=== PATIENT | female | born 1995 | race African-American/Black ===

== ENCOUNTER 2017-01-29 08:34 | Emergency (ER) | payer SELFPAY ==
[~2017-01-29] VITALS: Ht 160 cm; Wt 80.0 kg
[~2017-01-29 08:34] MED LIST: AVIANE PO; MEDDOSEPAK PO; METROGEL VAG0.75 % VA; SPRINTEC 2828 DAY PO; ULTRAM50 M1 PO; ZOFRAN ODT4 MG PO
[2017-01-29] MEDS ORDERED: PEPCID20 MG PO (09:15)
[2017-01-29] MEDS ORDERED: BENADRYL 50MG C50 MG PO (09:15)
[2017-01-29] MEDS ORDERED: MEDDOSEPAK PO (09:15)
[2017-01-29 09:38] VITALS: BP 111/55
== END 2017-01-29 09:44 | disposition home or self-care (01) | DRG 607 ==
LOC: ED 08:34
DX: L50.0 Allergic urticaria (principal); L29.9 Pruritus, unspecified; T50.995A Adverse effect of other drugs, medicaments and biological substances, initial encounter; Y92.009 Unspecified place in unspecified non-institutional (private) residence as the place of occurrence of the external cause

== ENCOUNTER 2017-05-12 14:25 | Emergency (ER) | payer SELFPAY ==
[~2017-05-12] VITALS: Ht 160 cm; Wt 90.5 kg
[~2017-05-12 14:25] MED LIST changes: +BENADRYL 50MG C50 MG PO; +PEPCID20 MG PO
[2017-05-12 15:45] LABS: URINE BILIRUBIN - DIPSTICK NEGATIVE (NEGATIVE); URINE BLOOD DIPSTICK NEGATIVE (NEGATIVE); URINE CLARITY CLEAR; URINE COLOR YELLOW; URINE GLUCOSE - DIPSTICK NEGATIVE (NEGATIVE); URINE KETONE NEGATIVE (NEGATIVE); URINE LEUK ESTERASE NEGATIVE (NEGATIVE); URINE NITRITE - DIPSTICK NEGATIVE (Negative); URINE PH 5.5 (4.5-8.0); URINE PROTEIN - DIPSTICK NEGATIVE (NEG-TRACE); URINE SPECIFIC GRAVITY 1.025; URINE UROBILINOGEN - DIPSTICK 0.2 E.U./dL (0.2)
[2017-05-12 16:07] LABS: HEMATOCRIT 35.6 % (37.0-47.0); HEMOGLOBIN 12.2 g/dl (12.0-16.0); IMMATURE GRANULOCYTES 0.3 % (0.0-1.0); MEAN CELL VOLUME 72.8 fL CALC (80.0-100.0); MEAN CORPUSCULAR HGB 24.9 pG CALC (26.0-32.0); MEAN CORPUSCULAR HGB CONC 34.3 g/L CALC (32.0-36.0); NEUT# 5.81 thou/uL (2.00-7.15); RED BLOOD COUNT 4.89 mill/uL (4.20-5.60); RED CELL DISTRI WIDTH 16.3 % (11.5-15.5)
[2017-05-12 16:27] LABS: ALBUMIN 4.1 g/dL (3.2-5.0); ALKALINE PHOSPHATASE 72 u/l (38-126); ANION GAP 13 (6-22 (CALC)); BILIRUBIN, TOTAL 0.2 mg/dL (0.0-1.4); BUN 10 mg/dL (7-17); BUN/CREATININE RATIO 17 (12-20 (CALC)); CALCIUM 9.1 mg/dL (8.4-10.2); CARBON DIOXIDE 26 mmol/l (22-30); CHLORIDE 105 mmol/l (95-108); CREATININE 0.6 mg/dL (0.5-1.0); GFR > 60 ML/MIN (>=60 (CALC)); GFR FOR AFR.AMER. > 60 ML/MIN (>=60 (CALC)); GLUCOSE 87 mg/dL (65-105); LIPASE 74 u/l (23-300); POTASSIUM 3.9 mmol/l (3.5-5.1); SGOT/AST 43 u/l (14-36); SGPT/ALT 35 u/l (9-52); SODIUM 140 mmol/l (137-146); TOTAL PROTEIN 7.1 g/dL (6.3-8.2)
[2017-05-12 17:57] VITALS: BP 118/68
== END 2017-05-12 18:08 | disposition home or self-care (01) | DRG 392 ==
LOC: ED 14:25
PROVIDERS: Family Medicine
DX: R10.32 Left lower quadrant pain (principal)
CPT/HCPCS: Q9967

== ENCOUNTER 2018-10-06 18:14 | Emergency (ER) | payer SELFPAY ==
[~2018-10-06] VITALS: Ht 160 cm; Wt 95.5 kg
[2018-10-06 18:37] VITALS: BP 119/69
== END 2018-10-06 20:22 | disposition left against medical advice (07) | DRG 951 ==
LOC: ED 18:14 → LWOBS 20:22
DX: Z91.19 Patient's noncompliance with other medical treatment and regimen (principal)

== ENCOUNTER 2018-10-18 14:53 | Emergency (ER) | payer OTHER ==
[~2018-10-18] VITALS: Ht 160 cm; Wt 90.0 kg
[2018-10-18] MEDS ORDERED: ZITHROMAX250 MG PO (16:06)
[2018-10-18] MEDS ORDERED: PROVENTIL108 MCG/AC IN (16:06)
[2018-10-18 16:21] VITALS: BP 133/81
== END 2018-10-18 16:21 | disposition home or self-care (01) | DRG 203 ==
LOC: ED 14:53
DX: J40 Bronchitis, not specified as acute or chronic (principal)

== ENCOUNTER 2019-01-05 21:31 | Emergency (ER) | payer OTHER ==
[~2019-01-05] VITALS: Ht 160 cm; Wt 92.7 kg
[~2019-01-05 21:31] MED LIST changes: +PROVENTIL108 MCG/AC IN; +ZITHROMAX250 MG PO
[2019-01-05] MEDS ORDERED: PROMETHAZINE12.5 MG PO (21:42)
[2019-01-05 22:38] LABS: HEMATOCRIT 33.3 % (37.0-47.0); HEMOGLOBIN 11.3 g/dl (12.0-16.0); IMMATURE GRANULOCYTES 0.5 % (0.0-5.0); MEAN CELL VOLUME 72.4 fL CALC (80.0-100.0); MEAN CORPUSCULAR HGB 24.6 pG CALC (26.0-32.0); MEAN CORPUSCULAR HGB CONC 33.9 g/L CALC (32.0-36.0); NEUT# 8.29 thou/uL (2.00-7.15); RED BLOOD COUNT 4.6 mill/uL (4.20-5.60); RED CELL DISTRI WIDTH 15.4 % (11.5-15.5)
[2019-01-05 22:43] LABS: URINE BILIRUBIN - DIPSTICK NEGATIVE (NEGATIVE); URINE BLOOD DIPSTICK NEGATIVE (NEGATIVE); URINE COLOR YELLOW; URINE GLUCOSE - DIPSTICK NEGATIVE (NEGATIVE); URINE KETONE NEGATIVE (NEGATIVE); URINE LEUK ESTERASE NEGATIVE (NEGATIVE); URINE NITRITE - DIPSTICK NEGATIVE (Negative); URINE PROTEIN - DIPSTICK NEGATIVE (NEG-TRACE); URINE SPECIFIC GRAVITY 1.025; URINE UROBILINOGEN - DIPSTICK 0.2 E.U./dL (0.2)
[2019-01-05 23:50] VITALS: BP 110/53
== END 2019-01-05 23:50 | disposition home or self-care (01) | DRG 833 ==
LOC: ED 21:31
PROVIDERS: Family Medicine
DX: O20.0 Threatened abortion (principal); O26.851 Spotting complicating pregnancy, first trimester; R10.9 Unspecified abdominal pain; Z3A.01 Less than 8 weeks gestation of pregnancy

== ENCOUNTER 2019-01-09 01:30 | Emergency (ER) | payer OTHER ==
[~2019-01-09] VITALS: Ht 160 cm; Wt 92.7 kg
[~2019-01-09 01:30] MED LIST changes: +PROMETHAZINE12.5 MG PO
[2019-01-09 02:42] LABS: HEMOGLOBIN 11.4 g/dl (12.0-16.0); IMMATURE GRANULOCYTES 0.6 % (0.0-5.0); MEAN CELL VOLUME 72.2 fL CALC (80.0-100.0); MEAN CORPUSCULAR HGB 24.2 pG CALC (26.0-32.0); MEAN CORPUSCULAR HGB CONC 33.5 g/L CALC (32.0-36.0); NEUT# 8.91 thou/uL (2.00-7.15); RED BLOOD COUNT 4.71 mill/uL (4.20-5.60); RED CELL DISTRI WIDTH 15.3 % (11.5-15.5)
[2019-01-09 02:43] LABS: URINE BILIRUBIN - DIPSTICK NEGATIVE (NEGATIVE); URINE BLOOD DIPSTICK NEGATIVE (NEGATIVE); URINE COLOR YELLOW; URINE GLUCOSE - DIPSTICK NEGATIVE (NEGATIVE); URINE KETONE TRACE mg/dL (NEGATIVE); URINE LEUK ESTERASE NEGATIVE (NEGATIVE); URINE NITRITE - DIPSTICK NEGATIVE (Negative); URINE PH 5.5 (4.5-8.0); URINE PROTEIN - DIPSTICK NEGATIVE (NEG-TRACE); URINE SPECIFIC GRAVITY >=1.030; URINE UROBILINOGEN - DIPSTICK 0.2 E.U./dL (0.2)
[2019-01-09 02:54] LABS: ALBUMIN 3.7 g/dL (3.2-5.0); ALKALINE PHOSPHATASE 73 u/l (38-126); ANION GAP 13 (6-22 (CALC)); BILIRUBIN, TOTAL 0.2 mg/dL (0.0-1.4); BUN 7 mg/dL (7-17); BUN/CREATININE RATIO 11 (12-20 (CALC)); CARBON DIOXIDE 25 mmol/l (22-30); CHLORIDE 104 mmol/l (95-108); CREATININE 0.7 mg/dL (0.5-1.0); GFR > 60 ML/MIN (>=60 (CALC)); GFR FOR AFR.AMER. > 60 ML/MIN (>=60 (CALC)); LIPASE 61 u/l (23-300); POTASSIUM 3.8 mmol/l (3.5-5.1); SGOT/AST 30 u/l (14-36); SODIUM 137 mmol/l (137-146); TOTAL PROTEIN 6.8 g/dL (6.3-8.2)
[2019-01-09 03:02] LABS: AMYLASE < 30 u/l (30-110)
[2019-01-09 03:40] LABS: BETA-HCG, QUANT(RESULT NUMBER) 115540 mIU/mL
[2019-01-09 05:39] VITALS: BP 98/55
== END 2019-01-09 05:36 | disposition left against medical advice (07) | DRG 833 ==
LOC: ED 01:30
PROVIDERS: Emergency Medicine
DX: O26.891 Other specified pregnancy related conditions, first trimester (principal); R10.31 Right lower quadrant pain; Z3A.08 8 weeks gestation of pregnancy; Z91.19 Patient's noncompliance with other medical treatment and regimen

== ENCOUNTER 2019-01-26 17:18 | Emergency (ER) | payer OTHER ==
[~2019-01-26] VITALS: Ht 160 cm; Wt 92.7 kg
[2019-01-27 19:30] VITALS: BP 110/58
== END 2019-01-26 19:30 | disposition home or self-care (01) | DRG 605 ==
LOC: ED 17:18
DX: S50.11XA Contusion of right forearm, initial encounter (principal); F17.210 Nicotine dependence, cigarettes, uncomplicated; V03.10XA Pedestrian on foot injured in collision with car, pick-up truck or van in traffic accident, initial encounter

== ENCOUNTER 2019-09-26 19:20 | Emergency (ER) | payer OTHER ==
[~2019-09-26] VITALS: Ht 160 cm; Wt 95.5 kg
[2019-09-26 20:51] LABS: HEMATOCRIT 34.7 % (37.0-47.0); HEMOGLOBIN 11.7 g/dl (12.0-16.0); IMMATURE GRANULOCYTES 0.3 % (0.0-5.0); MEAN CELL VOLUME 71.7 fL CALC (80.0-100.0); MEAN CORPUSCULAR HGB 24.2 pG CALC (26.0-32.0); MEAN CORPUSCULAR HGB CONC 33.7 g/L CALC (32.0-36.0); NEUT# 6.39 thou/uL (2.00-7.15); RED BLOOD COUNT 4.84 mill/uL (4.20-5.60); RED CELL DISTRI WIDTH 15.8 % (11.5-15.5)
[2019-09-26 21:05] LABS: ALBUMIN 3.8 g/dL (3.2-5.0); ALKALINE PHOSPHATASE 84 u/l (38-126); ANION GAP 14 (6-22 (CALC)); BILIRUBIN, TOTAL 0.2 mg/dL (0.0-1.4); BUN 12 mg/dL (7-17); BUN/CREATININE RATIO 16 (12-20 (CALC)); CARBON DIOXIDE 23 mmol/l (22-30); CHLORIDE 106 mmol/l (95-108); CREATININE 0.8 mg/dL (0.5-1.0); GFR > 60 ML/MIN (>=60 (CALC)); GFR FOR AFR.AMER. > 60 ML/MIN (>=60 (CALC)); POTASSIUM 3.9 mmol/l (3.5-5.1); SGOT/AST 26 u/l (14-36); SODIUM 139 mmol/l (137-146); TOTAL PROTEIN 7.1 g/dL (6.3-8.2)
[2019-09-26 21:22] LABS: BETA-HCG, QUANT(RESULT NUMBER) 166 mIU/mL
[2019-09-26 21:36] VITALS: BP 102/61
== END 2019-09-26 21:43 | disposition home or self-care (01) | DRG 779 ==
LOC: ED 19:20
PROVIDERS: Family Medicine
DX: O03.4 Incomplete spontaneous abortion without complication (principal); F17.200 Nicotine dependence, unspecified, uncomplicated

== ENCOUNTER 2019-11-25 | Emergency (ER) | payer OTHER ==
[2019-11-25] MEDS ORDERED: TESSALON PERLE100 MG PO (21:57)
[2019-11-25] MEDS ORDERED: TAM75CAP PO (21:57)
== END 2019-11-25 22:00 | disposition home or self-care (01) | DRG 153 ==
DX: J06.9 Acute upper respiratory infection, unspecified (principal); F17.290 Nicotine dependence, other tobacco product, uncomplicated; Z20.828 Contact with and (suspected) exposure to other viral communicable diseases